=== PATIENT | female | born 1985 | race Caucasian/White ===

== ENCOUNTER → 2017-04-16 | Outpatient (REF) | payer OTHER ==
[~2017-04-16] MED LIST: Dulcolax PO; LEVO50TA2 OR; SENN8.6T14 OR
[2017-04-16 13:13] LABS: FREE T4 1.05 NG/DL (0.76-1.46)
== END ==
LOC: M SFHCLERA 10:14
PROVIDERS: ATTEND Family Medicine
DX: E03.9 Hypothyroidism, unspecified (principal)